=== PATIENT | female | born 1930 | race Caucasian/White ===

== ENCOUNTER 2018-04-11 06:26 | Inpatient (IN) | payer OTHER ==
[~2018-04-11] VITALS: Ht 152.4 cm; Wt 59.7 kg
--- NOTE | ~2018-04-11 | PATH ---
[facility] [address] [place] [address] PATHOLOGY RPT PROCEDURE Name: KAYA BADILLO Room #: 424-P DIS IN M.R.#: [id number] Admission: 04/11/18 Date of : 32 Discharge: 04/14/18 Report #: [id number] Path Case #: [id number] [facility] Accession Number: [id number] . 01 Material submitted: . PART A: GASTRIC BX R/O H. PYLORI PART B: BX OF ESOPHAGUS R/O BARRETTS . 01 Clinical history: . nausea, vomiting, GI bleed, gastritis, esophagitis, hiatal hernia A: Rule out H. pylori B: Rule out Townsend's . 02 Diagnosis: A. Gastric mucosa, gastric rule out H. pylori, endoscopic biopsy: - Mild reactive gastropathy. - Negative for intestinal metaplasia or atrophy. - Negative for Helicobacter pylori (properly controlled immunohistochemical stain performed). . B. Gastric fundic-type mucosa, esophagus rule out Townsend's, endoscopic biopsy: - Specialized columnar epithelium with intestinal metaplasia, consistent with Townsend's metaplasia (please see comment). - Negative for dysplasia. - Mild chronic inflammation, congestion as well as reactive changes. [facility]/04/15/2018 . 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 (IUV:pit 04/15/2018) . 02 Electronically signed: . Karon Galan MD, Pathologist NPI- [id number] . 01 Gross description: . A. The specimen is received in formalin, labeled "Kaya Badillo and gastric biopsy, rule out H. pylori", are two irregular fragments of blanco soft tissue measuring 0.2 cm in greatest dimension each, the specimen is entirely submitted in A1. . B. The specimen is received in formalin, labeled "Kaya Badillo and [address] [address] PATHOLOGY RPT PROCEDURE Name: KAYA BADILLO Room #: 424-P DIS IN M.R.#: [id number] Admission: 04/11/18 Date of : 32 Discharge: 04/14/18 Report #: [id number] Path Case #: [id number] biopsy of esophagus rule out Townsend's", are three irregular fragments of diehl-white soft tissue ranging from 0.1 up to 0.3 cm in greatest dimension and measuring 0.4 x 0.2 x 0.1 cm in aggregate, the specimen is entirely submitted in B1. . . ([facility]; 04/14/2018) SHS/SHS . 02 Pathologist provided ICD-10: K31.9, K22.70 . 02 CPT . 673165, 849431, Q06999 Performed at: [address], [place] [id number] MD Rick Jim MD Phone: [phone] Performed at: [address] [id number] MD Karon Galan MD Phone: [phone]
[~2018-04-11 06:26] MED LIST: ACETAMINOPHEN325 M1 PO; ADULT LOW DOSE81 MG PO; ADULT WAL-100 MG/5 M PO; ALLERCLEAR10 MG PO; AMLODIPINE BESYL5 MG PO; ANTACID SUSPEN355 M1 PO; ANTACID325 MG; ARTIFICIAL TEAR15 M1 OPHTHALMIC; ASPIRIN EC81 M1; ATORVASTATIN CA20 MG PO; CRANBERRY CONC1 EAC1; EXTRA-VIRT PLU1 EACH PO; FERRO-TIME325 MG PO; HYDROCODON-ACE1 EAC7 PO; LOPERAMIDE 2 MG2 MG; MUCINEX600 MG PO; NEURONTIN 300300 M1 PO; NITROSTAT0.4 MG SUBLING; ONDANSETRON HCL4 M3 PO; OXYBUTYNIN 5 MG5 M2 PO; OXYCONTIN10 M1 PO; PRILOSEC 20 MG20 MG PO; PROZAC 20 MG20 MG PO; SINGULAIR 10 MG10 M1 PO; SYMBICORT80 MCG/4.1 INH; TOPROL XL50 MG PO; VITAMINC500 PO; ZUPLENZ4 MG
[2018-04-11 06:27] VITALS: BP 181/103
[2018-04-11 06:51] LABS: HEMOGLOBIN 13.1 gm/dL (12.0-15.0); MCH 29.1 pg (26.0-34.0); MCHC 33.7 g/dL (28.0-37.0); MCV 86.5 fL (80.0-100.0); RBC 4.51 mil/uL (4.20-5.00); RDW 14.8 % (10.5-14.5); WBC 7.9 thou/uL (4.0-11.0)
[2018-04-11 06:59] LABS: CALCIUM 9.3 mg/dL (8.5-10.1); POTASSIUM 4.1 mmol/L (3.5-5.1)
[2018-04-11 07:02] LABS: HCO3 28.7 mmol/L (22.0-26.0); PCO2 VENOUS 43.3 mmHg (41.0-51.0); PO2 VENOUS 55.5 mmHg (35.0-45.0)
[2018-04-11 07:05] LABS: ALBUMIN 3.2 g/dL (3.4-5.0); TOTAL BILIRUBIN 0.4 mg/dL (<0.1-1.0); TOTAL PROTEIN 7.9 g/dL (6.4-8.2)
[2018-04-11] MEDS ORDERED: ESCITALOPRAM OX10 MG PO (09:51)
[2018-04-11] MEDS ORDERED: UNICOMPLEX M TA1 TA1 PO (09:52)
[2018-04-11] MEDS ORDERED: VITAMIN B-1100 M1 PO (10:05)
[2018-04-11 10:10] VITALS: BP 162/81
[2018-04-11 10:37] VITALS: BP 162/81
[2018-04-11 16:17] VITALS: BP 1160/70
[2018-04-11 19:56] VITALS: BP 185/88
[2018-04-12 04:32] VITALS: BP 177/93
[2018-04-12 05:15] LABS: HEMOGLOBIN 11.2 gm/dL (12.0-15.0); MCHC 33.8 g/dL (28.0-37.0); MCV 85.6 fL (80.0-100.0); RBC 3.86 mil/uL (4.20-5.00); RDW 14.6 % (10.5-14.5)
[2018-04-12 05:25] LABS: CALCIUM 8.6 mg/dL (8.5-10.1); CREATININE 0.9 mg/dL (0.6-1.0); POTASSIUM 3.7 mmol/L (3.5-5.1)
[2018-04-12 11:53] VITALS: BP 166/90
[2018-04-12 15:15] VITALS: BP 134/71
[2018-04-12 19:25] VITALS: BP 136/60
[2018-04-13 04:56] VITALS: BP 159/82
[2018-04-13 05:49] LABS: ABSOLUTE NEUTROPHILS 5.4 thou/uL (1.4-8.2); BASOPHILS 0.3 % (0.0-2.0); EOSINOPHILS 2.1 % (0.0-3.0); HEMATOCRIT 31.7 % (37.0-47.0); HEMOGLOBIN 10.6 gm/dL (12.0-15.0); LYMPHOCYTES 11.1 % (24.0-44.0); MCH 29.1 pg (26.0-34.0); MCHC 33.6 g/dL (28.0-37.0); MCV 86.7 fL (80.0-100.0); PLATELET COUNT 176 thou/uL (150-400); POLYS 76.5 % (36.0-66.0); RBC 3.66 mil/uL (4.20-5.00); RDW 14.5 % (10.5-14.5); WBC 7.1 thou/uL (4.0-11.0)
[2018-04-13 07:54] VITALS: BP 149/89
[2018-04-13 20:00] VITALS: BP 114/53
[2018-04-14 04:30] VITALS: BP 152/74
[2018-04-14 07:58] VITALS: BP 142/69
[2018-04-14] MEDS ORDERED: PROTONIX40 M1 PO (13:09)
== END 2018-04-14 16:36 | DRG 377 ==
LOC: ER 06:26 → 4E 09:57 → EROBS 09:57 → 4E 11:09
PROVIDERS: Hospitalist; Student in an Organized Health Care Education/Training Program
PROC: 0DB68ZX Excision of Stomach, Via Natural or Artificial Opening Endoscopic, Diagnostic (ICD-10-PCS; principal; 2018-04-12)
PROC: 0DB58ZX Excision of Esophagus, Via Natural or Artificial Opening Endoscopic, Diagnostic (ICD-10-PCS; 2018-04-12)
DX: K29.71 Gastritis, unspecified, with bleeding (principal); E43 Unspecified severe protein-calorie malnutrition; K55.1 Chronic vascular disorders of intestine; K86.3 Pseudocyst of pancreas; D62 Acute posthemorrhagic anemia; K20.9 Esophagitis, unspecified; K44.9 Diaphragmatic hernia without obstruction or gangrene; I10 Essential (primary) hypertension; F32.9 Major depressive disorder, single episode, unspecified; J44.9 Chronic obstructive pulmonary disease, unspecified; Z96.649 Presence of unspecified artificial hip joint; I50.9 Heart failure, unspecified; F41.9 Anxiety disorder, unspecified; K21.9 Gastro-esophageal reflux disease without esophagitis; K57.91 Diverticulosis of intestine, part unspecified, without perforation or abscess with bleeding; Z88.0 Allergy status to penicillin; Z91.040 Latex allergy status; Z87.81 Personal history of (healed) traumatic fracture; Z87.891 Personal history of nicotine dependence; Z79.82 Long term (current) use of aspirin; Z79.899 Other long term (current) drug therapy; Z93.3 Colostomy status
CPT/HCPCS: 10183; 62110; 62900

== ENCOUNTER → 2018-06-03 | Outpatient (CLI) | payer OTHER ==
[~2018-06-03] MED LIST changes: +ESCITALOPRAM OX10 MG PO; +PROTONIX40 M1 PO; +UNICOMPLEX M TA1 TA1 PO; +VITAMIN B-1100 M1 PO
--- NOTE | ~2018-06-03 | PATH ---
[facility] [address] [place] [address] PATHOLOGY RPT PROCEDURE Name: KAYA BADILLO Room #: REG FRANK Garner#: [id number] Admission: 06/03/18 Date of : 32 Discharge: Report #: [id number] Path Case #: [id number] [facility] Accession Number: [id number] . 01 Material submitted: . BX, DISTAL ESOPHAGUS HX OF MORRISSEY'S . 01 Clinician provided ICD-10: K20.9 K22.70 . 01 Clinical history: . Esophagitis, Morrissey's esophagus Esophagitis . 02 Diagnosis: Gastroesophageal mucosa, distal esophagus, endoscopic biopsy: - Specialized columnar epithelium (gastric cardia-type mucosa) with intestinal metaplasia, compatible with Morrissey's metaplasia (please see comment). - Negative for dysplasia. - Reactive changes with moderate active esophagitis (including squamous epithelium). [facility] . 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 (IUV:pit 06/04/2018) . 02 Electronically signed: . Karon Galan MD, Pathologist NPI- [id number] . 01 Gross description: . The specimen is received in formalin, labeled "Kaya Badillo, BX distal esophagus history Morrissey's" and consists of 4 fragments of soft pink-blanco tissue measuring between 0.2 x 0.2 x 0.1 cm and 0.5 x 0.1 x 0.1 cm. They are entirely submitted in A1. (SDY; 06/03/2018) SYU/SYU . 02 Pathologist provided ICD-10: K22.70, K20.9 [place] [address] PATHOLOGY RPT PROCEDURE Name: KAYA BADILLO Room #: REG CLGuerrero Patsy#: [id number] Admission: 06/03/18 Date of : 32 Discharge: Report #: [id number] Path Case #: [id number] . 02 [facility] . [id number] Specimen Comment: A courtesy copy of this report has been sent to Specimen Comment: [phone], . Specimen Comment: Report sent to and Performed at: [address], [place], [place] [id number] MD Rick Jim MD Phone: [phone] Performed at: [address] [id number] MD Karon Galan MD Phone: [phone]
== END | disposition home or self-care (01) ==
LOC: GI 07:59
DX: K22.70 Barrett's esophagus without dysplasia (principal); K20.9 Esophagitis, unspecified; K44.9 Diaphragmatic hernia without obstruction or gangrene; I11.0 Hypertensive heart disease with heart failure; I50.9 Heart failure, unspecified; E78.00 Pure hypercholesterolemia, unspecified; J45.909 Unspecified asthma, uncomplicated; F32.9 Major depressive disorder, single episode, unspecified; F41.9 Anxiety disorder, unspecified; Z87.19 Personal history of other diseases of the digestive system; Z86.73 Personal history of transient ischemic attack (TIA), and cerebral infarction without residual deficits; Z79.899 Other long term (current) drug therapy; Z98.890 Other specified postprocedural states